=== PATIENT | male | born 1985 | race Caucasian/White ===

== ENCOUNTER 2020-10-16 16:50 | Emergency (ER) | payer OTHER, SELFPAY ==
[2020-10-16 17:14] VITALS: BP 137/87; PULSE 109; RESP 20; TEMP 36.9; O2SAT 99
[2020-10-16] MEDS: ONDANSETRON 4 MG ODT SL (20:05)
[2020-10-16] MEDS: BACITRACIN OINT 0.9 GM PCKT 1 APPLIC TOP (20:05)
[2020-10-16] MEDS: LORazepam 0.5 MG TABLET 1 MG PO (20:06)
[2020-10-16] MEDS: IBUPROFEN 400 MG TABLET PO (20:06)
[2020-10-16] MEDS: OXYCODONE/ACETAMINOPHEN 5/325 TABLET 1 TAB PO (20:06)
[2020-10-16] MEDS: LIDO 1%/SOD BICARB 8.4% (10ML) 10 ML SYRINGE INJ (20:06)
--- NOTE | 2020-10-17 04:31 | ED.UPPEXIN ---
HPI - Extremity Injury (Upper) General Chief Complaint: Extremity Injury, Upper Stated Complaint: Laceration in finger Time Seen by Provider: 10/16/20 18:11 History of Present Illness HPI narrative: 35-year-old gentleman with severe anxiety around medical procedures or injuries but otherwise healthy presents after cutting his left index finger with a knife while trying to slice a watermelon. Bleeding has been controlled but he is having closed panic attacks with the thought of care that will be needed. Related Data Allergies Allergy/AdvReac Type Severity Reaction Status Date / Time Penicillins Allergy Verified 10/16/20 17:21 Review of Systems Review of Systems Narrative: Remainder of complete review of systems is otherwise unremarkable except for that included in the HPI. Patient History Medical History Anxiety tobacco type: e-cigarettes Substance Use Type: does not use Exam Narrative Exam Narrative: General: Alert appropriate anxious but no acute distress Respiratory: Able to speak in full sentences, no obvious respiratory distress Skin: No obvious rashes, warm and dry Neurologic: Grossly intact no obvious asymmetries or abnormalities Psych: Dramatically anxious with hyperventilating Left index finger with a 2 cm laceration to the pad of the finger. Clean. Does not involve bone and he is neurovascularly intact distally Initial Vital Signs Initial Vital Signs: Vital Signs Temperature 98.4 F 10/16/20 17:14 Pulse Rate 109 H 10/16/20 17:14 Respiratory Rate 20 10/16/20 17:14 Blood Pressure 137/87 10/16/20 17:14 Pulse Oximetry 99 10/16/20 17:14 Procedures Laceration Repair Left index finger: Site: hand Side (If applicable): left Size (cm): 2 Description: linear Depth: simple, single layer Local Anesthetic: lidocaine 1% Amount of anesthesia used (mL): 8 Pre-repair: wound explored, irrigated extensively and deep structures intact Skin layer closed with: nylon Size (cm): 4-0 Number of sutures: 5 Technique: simple, interrupted Course Orders Ordered: Discontinued Medications Bacitracin (Bacitracin Oint 0.9 Gm Pckt) 1 applic TOP NOW ONE Stop: 10/16/20 19:35 Last Admin: 10/16/20 20:05 Dose: 1 applic Documented by: NARA Ibuprofen (Ibuprofen 400 Mg Tablet) 400 mg PO NOW ONE Stop: 10/16/20 19:36 Last Admin: 10/16/20 20:06 Dose: 400 mg Documented by: NARA Lidocaine/Sodium Bicarbonate (Lido 1%/Sod Bicarb 8.4% (10ml) 10 Ml Syringe) 10 ml INJ NOW ONE Stop: 10/16/20 19:35 Last Admin: 10/16/20 20:06 Dose: 10 ml Documented by: NARA Lorazepam (Lorazepam 0.5 Mg Tablet) 1 mg PO NOW ONE Stop: 10/16/20 19:35 Last Admin: 10/16/20 20:06 Dose: 1 mg Documented by: NARA Ondansetron HCl (Ondansetron 4 Mg Odt) 4 mg SL NOW ONE Stop: 10/16/20 19:35 Last Admin: 10/16/20 20:05 Dose: 4 mg Documented by: NARA Oxycodone/Acetaminophen (Oxycodone/Acetaminophen 5/325 Tablet) 1 tab PO NOW ONE Stop: 10/16/20 19:35 Last Admin: 10/16/20 20:06 Dose: 1 tab Documented by: NARA [facility] - Extremity Injury (Upper) Medical Records Attestation: I reviewed the patient's medical records. [facility] Narrative Medical decision making narrative: 35-year-old gentleman who is premedicated with anxiety and pain medication prior to simple laceration repair due to his near panic attack level of anxiety on presentation. He tolerated the procedure well. Bleeding is controlled. Finger is dressed with bacitracin and a Band-Aid. Because this is a clean wound in an otherwise healthy gentleman antibiotics are not indicated at this time. Wound care instructions reviewed with patient. He is safe for home discharge Discharge Plan Departure Patient Disposition: Home Clinical Impression: Laceration Instructions: DI for Laceration Repair -- Finger Activity Restrictions/Additional Instructions: Thank you for coming in today Your cut was clean and relatively superficial. It should heal nicely. You will need the sutures out on or about October 23. If you notice increasing redness, pain or drainage from the finger you need to be seen and re-evaluated Please keep some antibiotic ointment and a bandage over the stitches until they are removed.
== END 2020-10-16 23:35 | disposition home or self-care (01) ==
PROVIDERS: Emergency Provider Emergency Medicine
DX: S61.211A Laceration without foreign body of left index finger without damage to nail, initial encounter (principal); W26.0XXA Contact with knife, initial encounter; F41.9 Anxiety disorder, unspecified
CPT/HCPCS: 12001; 99283